=== PATIENT | female | born 1980 | race Hispanic/Latino ===

== ENCOUNTER → 2025-03-25 | Day surgery (SDC) | payer OTHER ==
[~2025-03-25] MED LIST: DEXAMETHASONE SOD PHOS INJ 4 MG/ML SDV ONE; FENTANYL CITRATE/PF 100MCG/2 ML INJ ONE; METOCLOPRAMIDE HCL 10 MG/2ML VIAL ONE; NEXIUM20 MG PO; OMEPRAZOLE40 MG PO; ONDANSETRON HCL INJ 2MG/ML 2ML 2 MG/ML VIAL ONE; PEPCID AC10 MG PO; PROPOFOL IV EMULSION 10 MG/ML 20 ML VIAL ONE
[2025-03-25 16:55] VITALS: TEMP 97
[2025-03-25 17:15] VITALS: BP 124/79; PULSE 79; RESP 18; O2SAT 97
== END | disposition home or self-care (01) ==
LOC: ENDO 13:37
PROVIDERS: ATTEND Internal Medicine Gastroenterology
DX: K22.2 Esophageal obstruction (principal); K29.50 Unspecified chronic gastritis without bleeding; K20.90 Esophagitis, unspecified without bleeding; K31.89 Other diseases of stomach and duodenum; K21.9 Gastro-esophageal reflux disease without esophagitis; E66.01 Morbid (severe) obesity due to excess calories; Z68.27 Body mass index [BMI] 27.0-27.9, adult; Z71.3 Dietary counseling and surveillance; Z87.11 Personal history of peptic ulcer disease; Z86.19 Personal history of other infectious and parasitic diseases; Z80.0 Family history of malignant neoplasm of digestive organs
CPT/HCPCS: 43239; 43450; 81025; J1100; J2405; J2470; J2704; J2765; J3010